=== PATIENT | male | born 1945 | race Caucasian/White ===

== ENCOUNTER 2021-12-06 11:58 | Outpatient (CLI) | payer BC ==
[~2021-12-06 11:58] MED LIST: Magnevist 469MG/ML 20 ML VIAL ONE
== END 2021-12-06 11:59 | disposition home or self-care (01) ==
LOC: TBSIIMAG 11:58
PROVIDERS: ATTEND Urology
DX: R97.20 Elevated prostate specific antigen [PSA] (principal)
CPT/HCPCS: 72197; 82565; A9579